=== PATIENT | female | born 1955 | race Asian ===

== ENCOUNTER → 2021-01-21 | Day surgery (SDC) | payer OTHER ==
[~2021-01-21] MED LIST: CRESTOR10 MG PO; FENTANYL CITRATE/PF 100MCG/2 ML INJ ONE; HYDROCHLOROTHIA25 MG PO; IRBESARTAN150 MG PO; LEVOTHYROXINE50 MCG PO; LUMIGAN2.5 M1 OP; MIDAZOLAM HCL 2 MG/2 ML VIAL ONE; OR PHACO EYE KIT ONE; PREDNISONE DROPS OU; PREOP PHACO EYE KIT ONE
[2021-01-21 13:15] VITALS: BP 143/83
== END | disposition home or self-care (01) ==
LOC: OR 08:48
PROVIDERS: ATTEND Ophthalmology
DX: H25.11 Age-related nuclear cataract, right eye (principal); I10 Essential (primary) hypertension; Z01.812 Encounter for preprocedural laboratory examination; Z20.822 Contact with and (suspected) exposure to COVID-19
CPT/HCPCS: 66984; U0002; J2250; J3010; V2787